=== PATIENT | male | born 1945 | race Caucasian/White ===

== ENCOUNTER 2021-01-28 21:28 | Emergency (ER) | payer MEDICARE, OTHER, SELFPAY ==
[2021-01-28 21:35] VITALS: BP 160/78; PULSE 93; RESP 20; TEMP 36.8; O2SAT 96
--- NOTE | 2021-01-28 22:01 | DI.RAD.S_ITS ---
PROCEDURE: XR HAND RT MIN 3V INDICATIONS: contusion dorsum hand after injury TECHNIQUE: 3 views of the hand(s) acquired. COMPARISON: None. FINDINGS: Bones: No fractures or dislocations. Carpal bones are normally aligned. No suspicious bony lesions. Soft tissues: No suspicious soft tissue calcifications. 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 Dictated by: Frank Reno M.D. on 01/29/2021 at 8:17 Approved by: Frank Reno M.D. on 01/29/2021 at 8:18
--- NOTE | 2021-01-28 22:01 | ED.GENADULT ---
HPI - General Adult General Chief complaint: Extremity Injury, Upper Stated complaint: rt hand injury, on warfarin Time Seen by Provider: 01/28/21 21:56 Source: patient Mode of arrival: Ambulatory Limitations: no limitations History of Present Illness HPI narrative: Patient is a 75-year-old male. 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 He states that he was trying to take off a bungee cord when he came back and hit him on the back of the right hand. Did not break the skin but he has had increase in swelling in that area since the event happened just shortly prior to arrival here in the ER. He did place ice on a prior to arrival. No other injuries from the event. Review of Systems Musculoskeletal Comments: Pain to the back of the right hand Integumentary/Breasts Comments: Bruising to the back of the right hand Neurologic Neurologic: Reports system reviewed and no additional complaints, except as documented Hematologic/Lymphatic On Anticoagulants: Yes Patient History Medical History DVT (deep venous thrombosis) Social History Smoking Status: Never smoker Smoking Status: Never smoker alcohol intake frequency: holidays/special occasions only Substance Use Type: does not use Exam Initial Vital Signs Initial Vital Signs: Vital Signs Temperature 98.2 F 01/28/21 21:35 Pulse Rate 93 H 01/28/21 21:35 Respiratory Rate 20 01/28/21 21:35 Blood Pressure 160/78 H 01/28/21 21:35 Pulse Oximetry 96 01/28/21 21:35 HENMT Head: normal to inspection and normocephalic Cardio Pulses: radial pulses present on the right Skin Other: There are no breaks in the skin however there is a large hematoma on the dorsum of the right hand. Neuro Other: Sensation intact to light touch Extrem Other: Some tenderness to palpation of the dorsum of the right hand where the hematoma is located however the remainder of the right hand exam is unremarkable Psych Appearance: grossly normal and well kempt Course Orders Ordered: ED Orders 01/28/21 22:01 XR hand RT min 3V Stat Vital Signs Vital signs: Vital Signs - 8 hr 01/28/21 21:35 Temperature 98.2 F Pulse Rate 93 H Respiratory Rate 20 Blood Pressure 160/78 H Pulse Oximetry 96 Medical Decision Making Imaging Data Extremity x-ray #1: Radiologist's Impression: Degenerative changes. No acute fracture MDM Narrative Medical decision making narrative: Patient is neurovascularly intact. There are no fractures noted on the x-ray. He does have a large hematoma on the dorsum of the right hand without any breaks in the skin. I suspect that this is from being hit from the bungee cord in the fact that he is on warfarin. No further workup needed in the emergency department. He was given return precautions and follow-up instructions. He expressed understanding and agreement. Discharge Plan Departure Patient Disposition: Home Clinical Impression: Contusion of hand, right Instructions: DI for Contusion Activity Restrictions/Additional Instructions: There were no fractures noted on the x-ray recommend that you do ice your hand multiple times a day to help with the bruising that is there. Return to the emergency department for any new or worsening symptoms. Continue to take all of your medications as directed
== END 2021-01-28 22:40 | disposition home or self-care (01) ==
PROVIDERS: Emergency Provider Emergency Medicine
DX: S60.221A Contusion of right hand, initial encounter (principal); Z79.01 Long term (current) use of anticoagulants
CPT/HCPCS: 73130; 99283